=== PATIENT | male | born 1980 | race Caucasian/White ===

== ENCOUNTER → 2018-01-06 14:11 | Outpatient (CLI) | payer BC, SELFPAY ==
[2018-01-06 16:05] LABS: Amphetamine Urine VISTA NEGATIVE (<1000 ng/mL); Barbiturate Urine VISTA NEGATIVE (< 200 ng/mL); Benzodiazepine Urine VISTA NEGATIVE (< 200 ng/mL); Cocaine Urine VISTA NEGATIVE (< 300 ng/mL); Ecstacy Urine VISTA NEGATIVE (< 500 ng/mL); Methadone Urine VISTA NEGATIVE (< 300 ng/mL); PCP Urine VISTA NEGATIVE (< 25 ng/mL); THC Urine VISTA NEGATIVE (< 50 ng/mL); Vista UDS pH Range 6
== END ==
PROVIDERS: Family Provider Family Medicine; PCP Family Medicine; Visit Provider Family Medicine
DX: F98.8 Other specified behavioral and emotional disorders with onset usually occurring in childhood and adolescence (principal)
CPT/HCPCS: 36415; 80307

== ENCOUNTER → 2018-01-08 09:34 | Outpatient (CLI) | payer BC, SELFPAY ==
[2018-01-08 12:07] LABS: Erythrocyte Sedimentation Rate 13 mm/hr (0-15)
[2018-01-08 12:08] LABS: Absolute Lymphocyte Count 1.48 X10^3/ul (0.83-4.51); Absolute Neutrophil Count 2.8 X10^3/uL (2.0-7.7); Basophil# 0.01 X10^3/uL; Basophil% 0.2 % (0-1); Eosinophil# 0.03 X10^3/uL; Eosinophils% 0.6 % (0-5); Hematocrit 40.2 % (40-54); Lymphocyte # 1.48 X10^3/ul (4.0); Lymphocyte % 30.6 % (19-41); Mean Corp Hgb Conc 34.8 g/gl (32-36); Mean Corpuscular Hgb 30.9 pg (27.0-32.0); Mean Corpuscular Volume 88.7 fL (80-94); Mean Platelet Vol. 11.4 fl (6.2-12.0); Monocyte# 0.49 X10^3/uL; Monocyte% 10.1 % (0-10); Neutrophil % 58.1 % (47-70); Platelet Count 225 K/mm3 (150-450); RBC Distribution Width CV 12.5 % (11.6-14.6); RBC Distribution Width SD 40.5 fl (35.1-43.9); Red Blood Count 4.53 M/mm3 (4.6-6.2); White Blood Count 4.8 K/mm3 (4.4-11.0)
[2018-01-08 12:11] LABS: Amphetamine Urine VISTA NEGATIVE (<1000 ng/mL); Barbiturate Urine VISTA NEGATIVE (< 200 ng/mL); Benzodiazepine Urine VISTA NEGATIVE (< 200 ng/mL); Cocaine Urine VISTA NEGATIVE (< 300 ng/mL); Ecstacy Urine VISTA NEGATIVE (< 500 ng/mL); Methadone Urine VISTA NEGATIVE (< 300 ng/mL); PCP Urine VISTA NEGATIVE (< 25 ng/mL); THC Urine VISTA NEGATIVE (< 50 ng/mL); Vista UDS pH Range 7
[2018-01-08 12:22] LABS: POSITIVE COUNT NO; POSITIVE DIFFERENTIAL NO; POSITIVE MORPHOLOGY NO
[2018-01-08 12:25] LABS: ALB/GLOB Ratio 1.1 RATIO (0.9-2.4); AST(SGOT) 34 U/L (15-37); Alanine Aminotransfer ALT/SGPT 65 U/L (16-61); Albumin, Serum 3.8 g/dL (3.2-5.0); Alkaline Phosphatase 65 U/L (45-117); Anion Gap 5 (5-15); BUN 11 mg/dL (7-18); BUN/Creat Ratio 13.8 RATIO (10-20); Calcium,Total 8.7 mg/dL (8.5-10.1); Chloride 105 mmol/L (98-107); EST Glomerular Filtration Rate 116 mL/min (>60); Est Glom Filt Rate - Afr Amer 141 mL/min (>60); Globulin 3.6 g/dL (2.2-4.2); Glucose 81 mg/dL (74-106); Iron 78 ug/dL (65-175); Potassium 4.1 mmol/L (3.5-5.1); Protein, Total 7.4 g/dL (6.4-8.2); Sodium Level 140 mmol/L (136-145); Thyroid Stim Hormone (TSH) 0.73 uIU/mL (0.358-3.74)
[2018-01-08 12:26] LABS: Vitamin B12 864 pg/mL (211-911); Vitamin D,25 Hydroxy 16.2 ng/mL (29.95-100.01)
[2018-01-10 10:00] LABS: EBV Acute VCA IgM < 36.0 U/mL (0.0-35.9); EBV-VCA IgG > 600.0 U/mL (0.0-17.9)
== END ==
PROVIDERS: Family Provider Family Medicine; PCP Family Medicine; Visit Provider Family Medicine
DX: R53.83 Other fatigue (principal)
CPT/HCPCS: 36415; 80053; 80307; 82306; 82607; 83540; 84403; 84443; 85025; 85652; 86663; 86664; 86665

== ENCOUNTER → 2018-01-16 09:31 | Outpatient (CLI) | payer BC, SELFPAY | PROVIDERS: Family Provider Family Medicine; PCP Family Medicine; Visit Provider Family Medicine | DX: F41.1 Generalized anxiety disorder (principal) | CPT/HCPCS: 36415 ==

== ENCOUNTER → 2019-10-23 13:41 | Outpatient (CLI) | payer BC, SELFPAY | PROVIDERS: Family Provider Family Medicine; PCP Family Medicine; Referring Provider Otolaryngology; Visit Provider Otolaryngology | DX: T78.40XA Allergy, unspecified, initial encounter (principal) | CPT/HCPCS: 36415 ==

== ENCOUNTER 2020-08-02 01:10 | Emergency (ER) | payer BC, SELFPAY ==
[2020-08-02 01:12] VITALS: BP 159/103; PULSE 49; RESP 15; TEMP 36; O2SAT 97; BMI 28.6
[2020-08-02] MEDS: 0.9% Normal Saline 1,000 ML 999 ML IV (01:34)
[2020-08-02] MEDS: Ketorolac 15 MG/ML Vial IV (01:34)
[2020-08-02 02:42] VITALS: BP 127/84; PULSE 52; RESP 16; O2SAT 97
--- NOTE | 2020-08-02 04:28 | ED.RN ---
see down time charting from 0200 until discharge
== END 2020-08-02 02:42 | disposition home or self-care (01) ==
LOC: ED 01:32
PROVIDERS: Emergency Provider Emergency Medicine; PCP Family Medicine
DX: G43.909 Migraine, unspecified, not intractable, without status migrainosus (principal)
CPT/HCPCS: 96361; 96374; 99282; J7030; A4216

== ENCOUNTER → 2021-01-11 07:45 | Outpatient (CLI) | payer BC, SELFPAY ==
[2021-01-11 10:25] LABS: Hematocrit 43.1 % (40-54); Hemoglobin 14.6 g/dL (13.0-16.5); Mean Corp Hgb Conc 33.9 g/dL (32-36); Mean Corpuscular Hgb 29.7 pg (27.0-32.0); Mean Corpuscular Volume 87.8 fL (80-94); Mean Platelet Vol. 11.3 fl (6.2-12.0); Platelet Count 290 K/mm3 (150-450); RBC Distribution Width CV 12.6 % (11.6-14.6); RBC Distribution Width SD 40.5 fl (35.1-43.9); Red Blood Count 4.91 M/mm3 (4.6-6.2)
[2021-01-11 10:48] LABS: Vitamin D,25 Hydroxy 13.8 ng/mL
[2021-01-11 10:50] LABS: ALB/GLOB Ratio 1.2 RATIO (0.9-2.4); AST(SGOT) 44 U/L (15-37); Alanine Aminotransfer ALT/SGPT 86 U/L (16-61); Albumin, Serum 4.1 g/dL (3.2-5.0); Alkaline Phosphatase 71 U/L (45-117); Anion Gap 7 (5-15); BUN 13 mg/dL (7-18); BUN/Creat Ratio 12.3 RATIO (10-20); Chloride 102 mmol/L (98-107); Cholesterol 296 mg/dL (200); Creatinine, Serum 1.06 mg/dL (0.70-1.30); EST Glomerular Filtration Rate 82 mL/min (>60); Est Glom Filt Rate - Afr Amer 99 mL/min (>60); Globulin 3.5 g/dL (2.2-4.2); Glucose 98 mg/dL (74-106); High Density Lipoprotein 41 mg/dL; Potassium 4.1 mmol/L (3.5-5.1); Protein, Total 7.6 g/dL (6.4-8.2); Sodium Level 138 mmol/L (136-145); Triglycerides 244 mg/dL; Very Low Density Lipoprotein 49 mg/dL (5-40)
== END ==
PROVIDERS: PCP Family Medicine; Referring Provider Family Medicine; Visit Provider Family Medicine
DX: Z00.00 Encounter for general adult medical examination without abnormal findings (principal); E78.5 Hyperlipidemia, unspecified; E55.9 Vitamin D deficiency, unspecified; R74.8 Abnormal levels of other serum enzymes
CPT/HCPCS: 36415; 80053; 80061; 82306; 85027

== ENCOUNTER → 2021-01-26 14:52 | Outpatient (CLI) | payer BC, SELFPAY ==
--- NOTE | 2021-01-26 14:54 | CT_ITS ---
INDICATION: HERNIA -- ABD WALL MASS SUSPECTED EXAMINATION: CT Abdomen W/ Contrast Injection TECHNIQUE: Helically acquired images were obtained of the abdomen after IV contrast. A radiation dose optimization technique was used for this scan. IV Contrast dosage and agent: 100 cc [id number] Oral contrast: None. COMPARISON: None. FINDINGS: Visualized lung bases: Unremarkable Liver: Unremarkable Gallbladder: Contracted. Spleen: Unremarkable Pancreas: Unremarkable Adrenal Glands: Unremarkable Kidneys: Unremarkable GI Tract: Unremarkable Vasculature: Mild scattered aortoiliac atherosclerotic calcifications. Lymphadenopathy: None Peritoneum: No ascites. Bones/Soft tissues: Moderate degenerative changes at L5-S1. CT/Abdomen WITH IV Contrast IMPRESSION: No acute abnormalities in the abdomen. Recommend obtaining additional Pelvis CT w/ contrast since protocol for Abdominal CT only does not cover the lower part of the abdomen. Electronically Signed: Abdelrahman Coronado MD at 17:07 EDT Tel , Service support ,
== END ==
PROVIDERS: PCP Family Medicine; Referring Provider Family Medicine; Visit Provider Family Medicine
DX: K46.9 Unspecified abdominal hernia without obstruction or gangrene (principal)
CPT/HCPCS: 74160

== ENCOUNTER → 2022-04-04 | Outpatient (CLI) | payer BC, SELFPAY ==
[2022-04-04 10:34] LABS: Vitamin D,25 Hydroxy 27.7 ng/mL
[2022-04-04 10:36] LABS: ALB/GLOB Ratio 1.2 RATIO (0.9-2.4); AST(SGOT) 35 U/L (15-37); Alanine Aminotransfer ALT/SGPT 59 U/L (16-61); Alkaline Phosphatase 59 U/L (45-117); Anion Gap 5 (5-15); BUN 16 mg/dL (7-18); BUN/Creat Ratio 15.7 RATIO (10-20); Chloride 104 mmol/L (98-107); Cholesterol 227 mg/dL (200); Creatinine, Serum 1.02 mg/dL (0.70-1.30); EST Glomerular Filtration Rate 85 mL/min (>60); Est Glom Filt Rate - Afr Amer 103 mL/min (>60); Globulin 3.4 g/dL (2.2-4.2); Glucose 91 mg/dL (74-106); High Density Lipoprotein 40 mg/dL; Potassium 4.1 mmol/L (3.5-5.1); Protein, Total 7.4 g/dL (6.4-8.2); Sodium Level 138 mmol/L (136-145); Triglycerides 180 mg/dL; Very Low Density Lipoprotein 36 mg/dL (5-40)
== END | disposition home or self-care (01) ==
LOC: MTLAB 07:21
PROVIDERS: PCP Family Medicine; Referring Provider Family Medicine; Visit Provider Family Medicine
DX: K21.9 Gastro-esophageal reflux disease without esophagitis (principal); Z13.220 Encounter for screening for lipoid disorders; E55.9 Vitamin D deficiency, unspecified
CPT/HCPCS: 36415; 80053; 80061; 82306

== ENCOUNTER → 2023-01-25 | Outpatient (CLI) | payer BC, SELFPAY ==
[2023-01-25 10:38] LABS: Vitamin D,25 Hydroxy 23.5 ng/mL
[2023-01-25 10:43] LABS: ALB/GLOB Ratio 1.2 RATIO (0.9-2.4); AST(SGOT) 33 U/L (15-37); Alanine Aminotransfer ALT/SGPT 55 U/L (16-61); Albumin, Serum 4.1 g/dL (3.2-5.0); Alkaline Phosphatase 61 U/L (45-117); Anion Gap 6 (5-15); BUN 18 mg/dL (7-18); BUN/Creat Ratio 16.5 RATIO (10-20); Calcium,Total 9.1 mg/dL (8.5-10.1); Chloride 102 mmol/L (98-107); Cholesterol 223 mg/dL (200); Creatinine, Serum 1.09 mg/dL (0.70-1.30); EST Glomerular Filtration Rate 79 mL/min (>60); Est Glom Filt Rate - Afr Amer 95 mL/min (>60); Globulin 3.3 g/dL (2.2-4.2); Glucose 90 mg/dL (74-106); High Density Lipoprotein 38 mg/dL; Potassium 4.1 mmol/L (3.5-5.1); Protein, Total 7.4 g/dL (6.4-8.2); Sodium Level 138 mmol/L (136-145); Triglycerides 137 mg/dL; Very Low Density Lipoprotein 27 mg/dL (5-40)
== END | disposition home or self-care (01) ==
LOC: MTLAB 07:13
PROVIDERS: PCP Family Medicine; Referring Provider Family Medicine; Visit Provider Family Medicine
DX: Z00.00 Encounter for general adult medical examination without abnormal findings (principal); K21.9 Gastro-esophageal reflux disease without esophagitis; Z13.220 Encounter for screening for lipoid disorders; E55.9 Vitamin D deficiency, unspecified
CPT/HCPCS: 36415; 80053; 80061; 82306